=== PATIENT | female | born 1950 | race Caucasian/White ===

== ENCOUNTER → 2024-02-19 14:49 | Outpatient (REF) | payer MEDICARE, SELFPAY ==
[2024-02-19 16:24] LABS: % Basophils 0.5 % (0-2); % Eosinophils 0.3 % (0-6); % Immature Granulocytes 0.3 % (0-0.5); % Lymphocytes 17.7 % (20.5-51.1); % Monocytes 7.3 % (1.7-9.3); % Neutrophils 73.9 % (42.2-75.2); Absolute Lymphocytes 1.3 10^3/uL (1.2-3.4); Absolute Monocytes 0.6 10^3/uL (0.1-0.6); Absolute Neutrophils 5.6 10^3/uL (1.4-6.5); Hematocrit 40.1 % (37.0-47.0); Mean Corp Hgb Conc. 32.4 g/dL (33.0-37.0); Mean Corpuscular Hgb 29.7 pg (27.0-31.0); Mean Corpuscular Volume 91.6 fL (81.0-99.0); Mean Platelet Volume 11.6 fL (7.4-10.4); Nucleated Red Blood Cells % 0 %; Platelet Count 269 10^3/uL (130-400); Red Blood Cell Count 4.38 10^6/uL (4.20-5.40); Red Cell Dist. Width 13.1 % (11.5-14.5); White Blood Cell Count 7.5 10^3/uL (4.8-10.8)
== END ==
LOC: REG 14:49
PROVIDERS: ATTENDING PHYSICIAN Family Medicine
DX: D64.9 Anemia, unspecified (principal)
CPT/HCPCS: 36415; 85025

== ENCOUNTER → 2024-11-24 13:47 | Outpatient (REF) | payer MEDICARE, SELFPAY | LOC: RAD 13:47 | PROVIDERS: ATTENDING PHYSICIAN Family Medicine | DX: M54.50 Low back pain, unspecified (principal) | CPT/HCPCS: 72110 ==

== ENCOUNTER 2024-11-29 08:04 | Inpatient (IN) | payer MEDICARE, SELFPAY ==
[2024-11-27 12:34] VITALS: BP 117/69
[2024-11-27 13:33] VITALS: BMI 25.0
[2024-11-27 14:02] LABS: % Basophils 0.4 % (0-2); % Eosinophils 0.2 % (0-6); % Immature Granulocytes 0.4 % (0-0.5); % Lymphocytes 7.6 % (20.5-51.1); % Monocytes 8.2 % (1.7-9.3); % Neutrophils 83.2 % (42.2-75.2); Absolute Lymphocytes 0.8 10^3/uL (1.2-3.4); Absolute Monocytes 0.8 10^3/uL (0.1-0.6); Absolute Neutrophils 8.3 10^3/uL (1.4-6.5); Hematocrit 40.3 % (37.0-47.0); Hemoglobin 13.1 g/dL (12.0-16.0); Mean Corp Hgb Conc. 32.5 g/dL (33.0-37.0); Mean Corpuscular Hgb 29.8 pg (27.0-31.0); Mean Corpuscular Volume 91.8 fL (81.0-99.0); Mean Platelet Volume 10.9 fL (7.4-10.4); Nucleated Red Blood Cells % 0 %; Platelet Count 298 10^3/uL (130-400); Red Blood Cell Count 4.39 10^6/uL (4.20-5.40); Red Cell Dist. Width 12.5 % (11.5-14.5)
[2024-11-27 14:17] LABS: ALT (SGPT) 15 U/L (0-35); AST (SGOT) 17 U/L (14-36); Albumin 3.8 g/dl (3.5-5.0); Alkaline Phosphatase 153 U/L (38-126); Blood Urea Nitrogen 21 mg/dl (7-17); Calcium 9.2 mg/dl (8.4-10.2); Carbon Dioxide 27 mmol/L (22-30); Chloride 107 mmol/L (98-107); Estimated Creatinine Clearance 48 ml/min; Glucose 104 mg/dl (70-99); Lipase 93 U/L (23-300); Potassium 4.5 mmol/L (3.5-5.1); Sodium 139 mmol/L (135-145); Total Bilirubin 0.8 mg/dl (0.2-1.3); Total Protein 6.5 g/dl (6.3-8.2); eGFR > 60.00
[2024-11-27] MEDS: OFIRMEV 100 IV (14:46)
[2024-11-27] MEDS: TORADOL 15 MG IV (14:46)
[2024-11-27 14:54] VITALS: BP 149/82
--- NOTE | 2024-11-27 15:01 | ED.GENMED ---
History of Present Illness
General
Chief Complaint: Back Pain
Source: patient and family
Exam Limitations: none
Time Seen by Provider: 11/27/24 13:00
History of Present Illness
History of Present Illness:
Progressive back pain for weeks. No distal numbness tingling or weakness. Back pain is intractable. Had outpatient x-rays apparently done earlier this week. Family does not know the results.
Past History
Past History
ED Past Medical History: Hypercholesterolemia and Other (dementia)
ED Past Surgical History: Other (Bilateral cataract surgery)
Social History
Tobacco: Smoker
Alcohol: Daily
Drug: None
Personal: Single
Living: with family
Employment: Retired
Family History
Family History: Other
Review of Systems
Review of Systems
All Other Systems: Not applicable
Constitutional: Denies fever
ABD/GI: Reports abdominal pain (Bloating)
Phy Exam
Physical Exam
Physical Exam:
GENERAL: Alert and oriented in no apparent distress. Elderly and frail
EYE: Orbits normal.
NECK: Supple, no significant adenopathy.
ENT: Pharynx without erythema
CARDIAC: Regular rate and rhythm without any obvious murmurs.
LUNGS: Clear breath sounds,normal
ABDOMEN: Soft, mild distention but soft. No rebound or guarding no mass or hernia. Good bowel sounds.
NEUROLOGICAL: Alert and oriented x 2, grossly non-focal
SKIN: Warm and dry, no rash or lesion, no discoloration, skin intact.
MUSCULOSKELETAL: No edema,no deformity.Good color. Significant pain with attempted sitting up. Good lower extremity strength.
PSYCH: Normal and appropriate interaction.
Course
Orders/Labs/Results
Orders:
Orders
11/27/24 13:26
IV Insert/Care/Rem.- Treatment PRN
11/27/24 13:28
CT Abd/pel Without Iv Or Oral Urgent
Comment:
Reason For Exam: Vague abdominal bloating/low back pain
11/27/24 13:32
Complete Blood Count/With Diff Urgent
Comprehensive Metabolic Panel Urgent
Lipase Urgent
11/27/24 14:42
Acetaminophen 1000MG/100Ml [Ofirmev] 1,000 mg in 100 ml IV ONCE
Acetaminophen IV Indication:: ED Narcotic Naive Pt-ONCE
Ketorolac [Toradol] 15 mg IV NOW STA
11/27/24 15:18
Admit/Transfer Patient As Directed
Co-Sign Provider:
Level of Care: Observation services
Assign to:: Medical/Surgical
Physician / Group: sofy benavidez
Diagnosis: compression fracture
PRN Pain Medication Management As Directed
May give lesser potent ordered pain med per pt: Yes
preference::
Protocol:: Medication orders for pain may be administered in a
manner that supports deferring to patient preference
when the pt is:
- Requesting an ordered lesser potent pain medication.
Least to most potent pain medications are defined
as: acetaminophen < NSAID < tramadol < opioids
(morphine, oxycodone, hydromorphone).
- Requesting a lesser dose of the same medication IF
ORDERED.
- Requesting a less intrusive route of administration
if both routes are prescribed by the provider (PO <
IV).
11/27/24 15:19
Code Status As Directed
Resuscitation Status: Full Code
Abnormal Lab Results
11/27/24
13:32
MCHC 32.5 L g/dL
(33.0-37.0)
MPV 10.9 H fL
(7.4-10.4)
Absolute Neuts (auto) 8.3 H 10^3/uL
(1.4-6.5)
Absolute Lymphs (auto) 0.8 L 10^3/uL
(1.2-3.4)
Absolute Monos (auto) 0.8 H 10^3/uL
(0.1-0.6)
Neutrophils % 83.2 H %
(42.2-75.2)
Lymphocytes % 7.6 L %
(20.5-51.1)
BUN 21 H mg/dl
(7-17)
Glucose 104 H mg/dl
(70-99)
Alkaline Phosphatase 153 H U/L
(38-126)
11/27/24 13:32
11/27/24 13:32
Vital Signs
Initial and Last Documented VS:
Initial Vital Signs
Temp Pulse Resp BP Pulse Ox
97.4 F 84 20 117/69 98
11/27/24 12:34 11/27/24 12:34 11/27/24 12:34 11/27/24 12:34 11/27/24 12:34
Last Documented Vital Signs
Temp Pulse Resp BP Pulse Ox
98.1 F 71 16 149/82 94
11/27/24 14:54 11/27/24 14:54 11/27/24 14:54 11/27/24 14:54 11/27/24 14:54
*Radiology
Radiology exam reviewed: radiology read reviewed (Severe T12 compression fracture)
*Pulse Oximetry
Patient hypoxic: no
*Critical Care Note
Total Time (30-74mins, 75-104mins- exclusive of procedures): Not Applicable
Update Note
Update Note:
Patient had a compression fracture known this week. It is severe but stable since earlier in the week. However it is new from that time. I suspect that is the cause of her intractable pain. She has no neurologic symptoms despite the
retropulsion. Warrants inpatient management and pain control.
ED Attending Note
-
Portions of this chart may have been created with voice recognition software.� Occasional wrong word or��sound alike� substitutions may have occurred due to the inherent limitations of voice recognition software.
Discharge Plan
Departure
Patient Disposition: Admit
Date of Disposition: 11/27/24
Time of Disposition: 15:00
Presentation/result/management discussed w/ accepting MD/DO: Hospitalist
Discharge Problem:
Severe T12 compression fracture, Intractable pain
Interventions
Interventions:
*Risk Screen - Suicide Last Done: 11/27/24 13:33
*General Assessment Last Done: 11/27/24 13:33
ED-Musculoskeletal Assessment Last Done: 11/27/24 13:53
--- NOTE | 2024-11-27 15:01 | HPS.HSE ---
Family Physician
-
Family Physician: Wili Chaves
Chief Complaint
-
fall
History of Present Illness
74 year old of female with PMH for HLD, anxiety presented with lower back pain since the fall on Friday. she is having trouble walking due to the pain. the pain is progressively getting worse. denied incontinence of bowel and bladder. denied
HAMIL[place],dizzy or syncope.denied fever, chills, chest pain,sob. denied abdominal pain,n,v,d. denied dysuria or hematuria.
CT with Marked T12 vertebral compression fracture with minor retropulsion of bony elements age-indeterminate but new in the interval since remote prior CT and stable in comparison to recent lumbar spine radiographs November 24, 2024.
patient received Tylenol and Toradol in ER admitting for further management.
Medical History
Past Medical History
Past Medical History: Reports Other
Additional Past Medical History:
Generalized anxiety disorder
Insomnia
Dementia
Hyperlipidemia
Hydrocephalus
Neoplasm of cervix uterus
Past Surgical History: Reports None
Social History
Tobacco: Smoker (0.5 backl a day. )
Alcohol: Daily
Drug: None
Personal: Single
Living: With Family
Family History
Family History: Not pertinent
Allergies / Home Medications
Allergies reflects when Allergies were last updated in [facility].
Home Medications with original date entered in [facility]
Allergy/Medication List:
Allergies
Allergy/AdvReac Type Severity Reaction Status Date / Time
No Known Allergies Allergy Verified 11/27/24 12:33
Home Medications
olanzapine 15 mg tablet 15 mg PO HS 08/27/23
ibuprofen 200 mg tablet (Advil) 200 mg PO Q6HPRN PRN mild pain 11/27/24
rosuvastatin 10 mg tablet (Crestor) 10 mg PO QPM 11/27/24
Review of Systems
-
Constitutional: Reports No Symptoms
EENT: Reports No Symptoms
Respiratory: Reports No Symptoms
Cardiac: Reports No Symptoms
Abdomen/GI: Reports No Symptoms
: Reports No Symptoms
Musculoskeletal: Reports Other (back pain)
Skin: Reports No Symptoms
Neurological: Reports No Symptoms
Endocrine: Reports No Symptoms
Hematologic/Lymphatic: Reports No Symptoms
Psych: Reports No Symptoms
Physical Exam
Vital Signs
Vital Signs
Temp Pulse Resp BP Pulse Ox
98.1 F 71 16 149/82 94
11/27/24 14:54 11/27/24 14:54 11/27/24 14:54 11/27/24 14:54 11/27/24 14:54
Physical Exam
General: Well Developed, Well Nourished and No Apparent Distress
HEENT: NormoCephalic, Moist mucous membranes and Atraumatic
Respiratory: Clear
Cardiac: S1/S2 and Regular Rhythm; No Murmur or Rub
GI: Soft, Non Tender, Non Distended and Normal Bowel Sounds; No Organomegaly
Rectal: Deferred by Provider
Musculoskeletal: No Clubbing, No Cyanosis and No Edema
Skin: No Rash
Neuro: AO x 3 and Nonfocal/grossly intact
Psych: Calm
Laboratory Results
-
11/27/24 13:32
11/27/24 13:32
Laboratory Results
Total Bilirubin 0.8 mg/dl (0.2-1.3) 11/27/24 13:32
AST 17 U/L (14-36) 11/27/24 13:32
ALT 15 U/L (0-35) 11/27/24 13:32
Alkaline Phosphatase 153 U/L (38-126) H 11/27/24 13:32
Lipase 93 U/L (23-300) 11/27/24 13:32
Data Reviewed
-
CT Scan: Report Reviewed by me
Lab Data: Labs Reviewed by me
Impression/Plan
-
#intractable pain from T12 compression fracture
-Ct abdomen pelvis with No urinary tract calculus or dilatation bilaterally.Likely distal colonic diverticulosis.Marked T12 vertebral compression fracture with minor retropulsion of bony elements age-indeterminate but new in the interval since
remote prior CT and stable in comparison to recent lumbar spine radiographs November 24, 2024.
-PT/OT consulted
-Tylenol ATC
-oxy, Dilaudid
-physiatry consulted
#HLD
-statin
#Anxiety
-olanzapine continued
#DVT prophylaxis
Lovenox
#CODE status
-full code
--- NOTE | 2024-11-27 15:29 | W.PN.UPDATE ---
Update Note
Progress Note Update
I could not get any information from the patient seems to have cognitive impalement
Information gathered by chart review and speaking with the ER staff.
This note serves as an addendum to the H&P by coffee attendant VIRGILIO Gladys NOVAK
HPI
74F from Home with sister, report cognitive decline( Dementia ?) indepedent with ambulation HLD, Anxiety , chr Clonazepam use seen at ER:
- pw severe back pain s/p soft fall at home last Friday (11/24/24)
- no radiation.
- At baseline intact Bowel and bladder function but recent accident , urine incontinence
- Last BM was yesterday
PHX: see above
Vital Signs
Temp Pulse Resp BP Pulse Ox
98.1 F 71 16 149/82 94
11/27/24 14:54 11/27/24 14:54 11/27/24 14:54 11/27/24 14:54 11/27/24 14:54
PE
Gen: awake, alert
HEENT:atraumatic
Neck:supple
Lungs:CTA
Cor: RRR S1 S2
Abdomen: soft non tender abdomen
POLISHER AND BUFFER: slow cognitive speed, awake and alert , followed simple commands
MS: symmetric movement f both LExs
Psych: alert and confused
Laboratory Tests
11/27/24
13:32
WBC 10.0
Hgb 13.1
Plt Count 298
BUN 21 H
Creatinine 0.9
eGFR > 60.00
Alkaline Phosphatase [address]/pel Without Iv Or Oral
- No urinary tract calculus or dilatation bilaterally.
- Likely distal colonic diverticulosis.
- Marked T12 vertebral compression fracture with minor retropulsion of bony elements age-indeterminate but new in the interval since remote prior CT and stable in comparison to recent lumbar spine radiographs November 24, 2024.
ASSESSMENT & PLAN
Marked T12 vertebral compression Fx with minor retropulsion of bony elements age-indeterminate
New in the interval since remote prior CT and stable in comparison to recent lumbar spine XR November 24, 2024.
At baseline intact Bowel and bladder function but recent accident , urine incontinence
No red flags signs for acute cord and root compression
Of note: suspect cognitive decline( Dementia ?). Report indepedent with ambulation per sister
- Fx set protocol for PRN Analgesia, BW Regime
- PT & OT , CRM consult
- PM & R consult
- fall precaution
HLD
- c/w Statin
Suspect dementia
HX Anxiety
-c/w LYRIC WRITER Clonazepam
DVT Px: LMWH
Full code
Obs MS
[2024-11-27 17:21] VITALS: BP 151/73; BMI 24.4
[2024-11-27] MEDS: CRESTOR 10 MG PO (18:37)
[2024-11-27] MEDS: LOVENOX 40 MG SC (18:37)
[2024-11-27] MEDS: TYLENOL 650 MG PO ×2 (18:37→20:17)
[2024-11-27] MEDS: SENOKOT 17.2 MG PO (20:17)
[2024-11-27] MEDS: COLACE 100 MG PO (20:17)
[2024-11-27] MEDS: ZYPREXA 15 MG PO (21:11)
[2024-11-27 23:44] VITALS: BP 116/57
[2024-11-28] MEDS: TYLENOL PO ×2 (00:06→12:32)
[2024-11-28] MEDS: TYLENOL 650 MG PO ×5 (05:00→23:14)
[2024-11-28 07:30] VITALS: BP 132/63
[2024-11-28] MEDS: SENOKOT 17.2 MG PO ×2 (08:51→20:23)
[2024-11-28] MEDS: COLACE 100 MG PO ×2 (08:51→20:23)
--- NOTE | 2024-11-28 10:45 | W.PN.HOSP.TC ---
Addendum entered and electronically signed by Noel Carreon MD 11/28/24 12:29:
updated sister over the phone in details.
Addendum entered and electronically signed by Noel Carreon MD 11/28/24 10:55:
General: Well Developed, Well Nourished and No Apparent Distress, abnormal facial features
HEENT: NormoCephalic, Moist mucous membranes and Atraumatic
Respiratory: Clear
Cardiac: S1/S2 and Regular Rhythm; No Murmur or Rub
GI: Soft, positive bowel sound, mild distention
Rectal: Deferred by Provider
Musculoskeletal: No Clubbing, No Cyanosis and No Edema, no step-offs
Skin: No Rash
Neuro: Nonfocal/grossly intact
Psych: Calm
Original Note:
Today's Communication/Plan
-
Pain control
Bowel regimen
Rehab evaluation
Monitor mentation
Assessment / Plan
Assessment / Plan
#Intractable back pain from subacute vs. chronic T12 compression fracture
-Ct abdomen pelvis with No urinary tract calculus or dilatation bilaterally.Likely distal colonic diverticulosis.Marked T12 vertebral compression fracture with minor retropulsion of bony elements age-indeterminate but new in the interval since
remote prior CT and stable in comparison to recent lumbar spine radiographs November 24, 2024.
-PT/OT consulted
-no neurologic symptoms despite the retropulsion.
-Tylenol ATC
-bowel regimen
#HLD
-statin
#Paranoid scizophrenia ?
-olanzapine continued
#Suspected cognitive impairment
monitor mentation
fall precautions
# Tobacco abuse with suspected underlying COPD
# Alcohol usage
#DVT prophylaxis
Lovenox
#CODE status
-full code
Anticipated Discharge: 24 - 48 hours
Subjective/Interval History
-
Date of Service: November 28, 2024
denies any pain
Objective Data
-
Vital Signs:
Vital Signs
Temp Pulse Resp BP Pulse Ox
97.9 F 81 18 132/63 94
11/28/24 07:30 11/28/24 07:30 11/28/24 07:30 11/28/24 07:30 11/28/24 07:30
I&O
11/27/24 11/28/24 11/29/24
06:59 06:59 06:59
Intake Total 240 / 240
Balance 240 / 240
[2024-11-28] MEDS: MIRALAX 17 GRAMS PO ×2 (11:19→20:23)
[2024-11-28] MEDS: ROXICODONE 5 MG PO (11:19)
[2024-11-28 12:58] VITALS: BP 131/64; PULSE 77; O2SAT 92
--- NOTE | 2024-11-28 13:04 | CM ---
Adm dx - compression fracture
Pt with impaired cognitive function. Spoke with pts sister, Marti to complete IA
Per sister pt has hx of dementia, anxiety and schizophrenia. Over the past week has become increasing unsteady on her feet and a decreased appetite.
Pt lives in a multi-story home; 3 steps to enter, FF set up for pt - sleeps on sofa
Baseline pt ambulates without device, can dress and feed self with direction. Personal care - direction given to wash
DME - none
SNF - denies past hx
HH - [facility] in past
PCP - Wili Chaves
Pharm - [facility]
Discussed R[facility] with sister
PT/OT eval pending
Plan - TBD based on PT/OT evals, care team plan
[2024-11-28 13:28] VITALS: BP 131/64; PULSE 77; O2SAT 92
[2024-11-28] MEDS: MORPHINE SULFATE 1 MG IV (13:33)
[2024-11-28 15:05] VITALS: BP 118/49
[2024-11-28] MEDS: MORPHINE SULFATE 3 MG IV (16:17)
[2024-11-28] MEDS: LIDOCAINE 4% PATCH 1 PATCH TOPICAL (16:17)
[2024-11-28] MEDS: CRESTOR 10 MG PO (18:11)
[2024-11-28] MEDS: LOVENOX 40 MG SC (18:11)
[2024-11-28] MEDS: ROXICODONE 7.5 MG PO (18:21)
[2024-11-28] MEDS: ZYPREXA 15 MG PO (20:23)
[2024-11-28 23:05] VITALS: BP 105/49
[2024-11-29] MEDS: TYLENOL PO ×2 (06:06→16:41)
[2024-11-29 07:00] VITALS: BP 105/48
[2024-11-29] MEDS: LIDOCAINE 4% PATCH 1 PATCH TOPICAL (08:28)
[2024-11-29] MEDS: TYLENOL 650 MG PO ×3 (08:29→19:33)
[2024-11-29] MEDS: COLACE 100 MG PO ×2 (08:29→19:34)
[2024-11-29] MEDS: SENOKOT 17.2 MG PO ×2 (08:29→19:33)
[2024-11-29] MEDS: MIRALAX 17 GRAMS PO ×2 (08:29→19:34)
[2024-11-29] MEDS: ROXICODONE 7.5 MG PO (08:35)
[2024-11-29 09:10] VITALS: BP 111/71; BP 154/79; PULSE 80; O2SAT 92
[2024-11-29 09:54] LABS: Vitamin D, 25-OH*** 13.7 ng/mL (30-80)
--- NOTE | 2024-11-29 10:36 | W.PN.HOSP.TC ---
Addendum entered and electronically signed by Noel Carreon MD 11/29/24 13:23:
updated sister Marti over the phone in details.
Original Note:
Today's Communication/Plan
-
pain control
CM for dispo
Assessment / Plan
Assessment / Plan
General: Well Developed, Well Nourished and No Apparent Distress, abnormal facial features
HEENT: NormoCephalic, Moist mucous membranes and Atraumatic
Respiratory: Clear
Cardiac: S1/S2 and Regular Rhythm; No Murmur or Rub
GI: Soft, positive bowel sound, mild distention
Rectal: Deferred by Provider
Musculoskeletal: No Clubbing, No Cyanosis and No Edema, no step-offs
Skin: No Rash
Neuro: Nonfocal/grossly intact
Psych: Calm
#Intractable back pain from subacute vs. chronic T12 compression fracture
-Ct abdomen pelvis with No urinary tract calculus or dilatation bilaterally.Likely distal colonic diverticulosis.Marked T12 vertebral compression fracture with minor retropulsion of bony elements age-indeterminate but new in the interval since
remote prior CT and stable in comparison to recent lumbar spine radiographs November 24, 2024.
-PT/OT consulted
-no neurologic symptoms despite the retropulsion.
-oxycodone increased. tramadol. Iv morphine for severe breakthrough pain
-Tylenol ATC
-bowel regimen
#HLD
-statin
#Paranoid scizophrenia ?
-olanzapine continued
#Suspected cognitive impairment
monitor mentation
fall precautions
# Tobacco abuse with suspected underlying COPD
# Alcohol usage
#DVT prophylaxis
Lovenox
#CODE status
-full code
PT/OT-home vn
Anticipated Discharge: Within 24 hours
Subjective/Interval History
-
Date of Service: November 29, 2024
sitting in chair
states of back pain
Objective Data
-
Vital Signs:
Vital Signs
Temp Pulse Resp BP Pulse Ox
98.2 F 78 22 105/48 90
11/29/24 07:00 11/29/24 07:00 11/29/24 07:00 11/29/24 07:00 11/29/24 07:00
I&O
11/28/24 11/29/24 11/30/24
06:59 06:59 06:59
Intake Total 240 / 240 1080 / 1080
Output Total 200 / 200
Balance 240 / 240 880 / 880
--- NOTE | 2024-11-29 11:11 | CM ---
Chart reviewed
Pts status changed to inpatient
PT/OT - recs - HH
Spoke with pts sister Marti - discussed PT/OT recs - agreeable to HH for sister. Requested [facility]
Discussed change in status - reviewed IMM verbally with sister
Reports can transport pt home at d/c
Discussed resources available through [facility] on agency - reports pts PCP had previously given her information and phone number
Reports at this time home life is ok - she will call regarding additional supports if needs change
Marti requesting update from Physician - TT sent to Dr Carreon
[facility] - RN/PT/PT/SW
Plan - anticipate home with [facility] when medically stable
--- NOTE | 2024-11-29 11:28 | VNURNOTE ---
Home Health Liaison spoke with patient 's primary contact/caregiver sister Marti to discuss [facility] nurse/therapy, visits, schedule and homebound status. Patient is agreeable and understands that visits at home will be 2-3 x per week to assess and
teach medical management. She is familiar with [facility] services. Sister is aware that [facility] will contact them for start of care in 1-2 days after discharge from .
[facility] referral completed in [facility].
[2024-11-29] MEDS: DRISDOL (VITAMIN D2) 50000 UNITS PO (11:49)
[2024-11-29] MEDS: MORPHINE SULFATE 3 MG IV ×2 (12:42→16:42)
[2024-11-29] MEDS: ULTRAM 50 MG PO (14:47)
[2024-11-29 15:07] VITALS: BP 124/92
[2024-11-29] MEDS: CRESTOR 10 MG PO (17:03)
[2024-11-29] MEDS: LOVENOX 40 MG SC (17:03)
--- NOTE | 2024-11-29 17:30 | CON.MD ---
Documented by User: Holli Shelton PA-C 11/30/24 08:44
Consultation - Medical
-
Referring Provider:�oNel Delgadillo
Chief Complaint:�Back pain, T12 compression fracture
�
History of Present Illness:�74 year old female with PMH for (HLD, anxiety,insomnia, dementia, hyperlipidemia, history of hydrocephalus, neoplasm of cervix uterus, left shoulder fracture s/p reversed replacement, Paranoid schizophrenia.) presented
with intractable back pain since the fall on 11/24/24. she is having trouble walking due to the pain. the pain is progressively getting worse. denied incontinence of bowel and bladder. CT scan revealed marked T12 vertebral compression
fracture with minor retropulsion of bony elements age indeterminate but new in the interval since remote prior CT and stable in comparison to recent lumbar spine radiology or 2024
Patient received Tylenol and Toradol in ER admitting for further management. Per therapy notes, patient's sister reported that patient was sleeping upstairs in the bedroom up until last year when she fractured her left shoulder. She since has been
sleeping on a couch in the living room. Supervision without device/furniture walks around the house.
Patient still complaining of 10/10 back pain lying in bed. Voices no bowel movements in few days. Unclear of timing of last bowel movement.
�
Past Medical History:� HLD, anxiety, insomnia, dementia, paranoid schizophrenia ,hyperlipidemia, hydrocephalus, neoplasm of cervix uterus, left shoulder fracture, R breast DCIS, 2018, s/p lumpectomy.
Procedure History:�left total reversed shoulder replacement, Bilateral cataract extraction, right breast lumpectomy, Hysterectomy.
Family History:� non contributory.
�
Social History:�
Functional Level Premorbidly:�Previous ADL�supervision,
Functional Level Currently:�Eating�set up, grooming, toileting�min assist, lower extremity care�mod assist, bed mobility�supervision, ambulates 30 feet x 1, void on toilet, stand at sink with OT for ADL, 20 feet x 1 without a device and hand-held
assist/min assist for balance, increased pain with mobility, decreased lower extremity clearance and step length unsteady
Tobacco:0.5 pack/day since 18
Alcohol:�Daily, 2 glasses of wine
Drug use:�Denies�
�
Lives with:�2 other sisters (Megan and Shanique)
24-hour assistance available:�
Number of floors:�3
# steps to enter:�2
# steps to second floor:FF
Potential First floor set up:�yes
Driving:�no
Occupation:�Retired
�
�
Allergies:�
Allergy/AdvReac Type Severity Reaction Status Date / Time
No Known Allergies Allergy Verified 11/27/24 12:33
�
Review of Systems:�
Constitutional: (x) Normal _
Eye: (x) Normal _
Ear/Nose/Throat: (x) Normal _
Respiratory: (x) Normal _
Cardiovascular: (x) Normal _
Gastrointestinal: (x) Normal _
Genitourinary: (x) abNormal Stress incontinence._
Musculoskeletal: (x) abNormal _back pain from T12 compression fracture, h/o left total reversed shoulder replacement
Integumentary: (x) Normal _
Neurologic: (x) Normal _hydrocephalus
Psychiatric: (x) abNormal _anxiety, paranoid
Endocrine: (x) Normal _
Hematologic/Lymphatic: (x) Normal _
Allergic/Immunologic: (x) Normal _
�
Medications:�
Active Current Visit Medication List
Category Date Time Status
Acetaminophen [Tylenol] Med 11/27/24 17:02 Active
650 mg PO Q4HWA
Docusate Sodium [Colace] Med 11/27/24 20:00 Active
100 mg PO BID
Enoxaparin Sodium [Lovenox] Med 11/27/24 18:00 Active
40 mg SC QPM
Ergocalciferol [Drisdol (Vitamin D2)] Med 11/29/24 11:00 Active
50,000 units PO Q7D
Flush (0.9% Sodium Chloride) [Flush (Nss)] Med 11/27/24 18:00 Active
See Dose Instructions IV PER PROTOCOL
Lidocaine [Lidocaine 4% Patch] Med 11/28/24 14:45 Active
1 patch TOPICAL DAILY
Magnesium Hydroxide [Milk of Magnesia] Med 11/27/24 17:02 Active
30 ml PO DAILYPRN PRN
Morphine Sulfate Med 11/28/24 14:34 Active
3 mg IV Q4HPRN PRN
Olanzapine [Zyprexa] Med 11/27/24 22:00 Active
15 mg PO HS
Oxycodone [Roxicodone] Med 11/29/24 10:36 Active
10 mg PO Q4HPRN PRN
Polyethylene Glycol Powder [Miralax] Med 11/28/24 11:00 Active
17 grams PO BID
Rosuvastatin Calcium [Crestor] Med 11/27/24 18:00 Active
10 mg PO QPM
Sennosides [Senokot] Med 11/27/24 20:00 Active
17.2 mg PO BID
Tramadol HCl [Ultram] Med 11/29/24 10:35 Active
50 mg PO Q6HPRN PRN
�
Vitals:�
Temp Pulse Resp BP Pulse Ox
97.8 F 89 21 124/92 91
11/29/24 15:07 11/29/24 15:07 11/29/24 15:07 11/29/24 15:07 11/29/24 15:07
Height 5 ft 5 in
Actual Weight 66.497 kg
Body Mass Index (BMI) 24.4
�
Physical Exam:�
General Appearance/Observation: Well-developed, well-nourished individual in no apparent distress.�
Pain/Comfort Assessment: back 10/10 lying in bed
Mood/Affect: flat,
�
Integumentary/Operative Site:�
�� Pressure Ulcer Evaluation: absent over heels.�
��
�� Other Type of Wound: absent�
��
�
Eyes: Conjunctiva/Lids: left ptosis, teary eyes���� Pupils: pupils equal round
Ears/Nose/Throat: oral mucosa moist,� throat clear.������������ Lips/Teeth/Gums: normal�
Neck: No muscle spasm or tenderness�
Cardiovascular: Heart: regular, no murmur�
Pulses: dorsalis pedis -NT
Respiratory: Respiratory Effort/Chest Expansion: normal������� Auscultation: Clear to auscultation bilaterally�
Gastrointestinal: abdomen not tender, no distension, normal abdominal bowel sounds
Genitourinary: No Waller�
Extremities:�Edema: None�Cyanosis: None�Trophic�changes: None
�
Neurology Exam:
Orientation: Alert, Oriented to self, Time, Place�
Memory: seems Intact for immediately medical concerns
Comprehension: slow processing somewhat impaired
Two step command: slow to respond
Naming: somewhat impaired, showed the TV and asked to ID it, said 'a box', showed bed, said ' I lay on it', knows year, month and date
Cranial Nerves:
�� CNII:�Pupillary light reflex: Intact����Visual Field: Intact
�� CN III, IV, : Extraocular muscles: Intact�
�� CN V:�Facial Sensation�at�Forehead: Intact,�Maxilla: Intact,�Mandible: Intact
�� CN VII:�Facial movement: Symmetric
�� CN VIII:�Hearing: Normal
�� CN IX/X:�Speech & swallow: low volume, somewhat muffled�Position of Uvula: Midline
�� CN XI:�Shoulder shrug: Symmetric
�� CN XII:�Tongue protrusion: Midline
Sensory:
�� Light touch: Intact in bilateral upper and lower extremities
��
�
Reflexes:
�� Biceps: 2+ bilaterally
�� Brachioradialis: 2+ bilaterally
�� Triceps: 2+ bilaterally
�� Patellar: 2+ bilaterally
�� Achilles: absent bilaterally
�� Babinski: Down going bilaterally
�� Clonus: NT
�� Cory: Negative bilaterally�
Cerebellar: Dysmetria/Ataxia: NT
Musculoskeletal:
Motor: (Manual muscle scale 0-5)�
Muscle SA EF WE EE FF FA HF KE DF EHL PF
Right� 5 5 4 4 4 5 4 4
Left 5 5 4 4 4 5 4
�strength test better with encouragement
Tone: Normal in all extremities�
Range of Motion: Passively within normal limits in all extremities�, diminished in shoulders
�
Lab Results:
Labs
WBC 10.0 10^3/uL (4.8-10.8) 11/27/24 13:32
RBC 4.39 10^6/uL (4.20-5.40) 11/27/24 13:32
Hgb 13.1 g/dL (12.0-16.0) 11/27/24 13:32
Hct 40.3 % (37.0-47.0) 11/27/24 13:32
MCV 91.8 fL (81.0-99.0) 11/27/24 13:32
MCH 29.8 pg (27.0-31.0) 11/27/24 13:32
MCHC 32.5 g/dL (33.0-37.0) L 11/27/24 13:32
RDW 12.5 % (11.5-14.5) 11/27/24 13:32
Plt Count 298 10^3/uL (130-400) 11/27/24 13:32
MPV 10.9 fL (7.4-10.4) H 11/27/24 13:32
Abs Immat Gran (auto) 0.0 10^3/uL (0-0.05) 11/27/24 13:32
Absolute Neuts (auto) 8.3 10^3/uL (1.4-6.5) H 11/27/24 13:32
Absolute Lymphs (auto) 0.8 10^3/uL (1.2-3.4) L 11/27/24 13:32
Absolute Monos (auto) 0.8 10^3/uL (0.1-0.6) H 11/27/24 13:32
Absolute Eos (auto) 0.0 10^3/uL (0-0.7) 11/27/24 13:32
Absolute Basos (auto) 0.0 10^3/uL (0-0.2) 11/27/24 13:32
Immature Gran % 0.4 % (0-0.5) 11/27/24 13:32
Neutrophils % 83.2 % (42.2-75.2) H 11/27/24 13:32
Lymphocytes % 7.6 % (20.5-51.1) L 11/27/24 13:32
Monocytes % 8.2 % (1.7-9.3) 11/27/24 13:32
Eosinophils % 0.2 % (0-6) 11/27/24 13:32
Basophils % 0.4 % (0-2) 11/27/24 13:32
Nucleated RBC % 0 % 11/27/24 13:32
Sodium 139 mmol/L (135-145) 11/27/24 13:32
Potassium 4.5 mmol/L (3.5-5.1) 11/27/24 13:32
Chloride 107 mmol/L (98-107) 11/27/24 13:32
Carbon Dioxide 27 mmol/L (22-30) 11/27/24 13:32
BUN 21 mg/dl (7-17) H 11/27/24 13:32
Creatinine 0.9 mg/dL (0.6-1.0) 11/27/24 13:32
Estimated Creat Clear 48 ml/min 11/27/24 13:32
eGFR > 60.00 11/27/24 13:32
Glucose 104 mg/dl (70-99) H 11/27/24 13:32
Calcium 9.2 mg/dl (8.4-10.2) 11/27/24 13:32
Total Bilirubin 0.8 mg/dl (0.2-1.3) 11/27/24 13:32
AST 17 U/L (14-36) 11/27/24 13:32
ALT 15 U/L (0-35) 11/27/24 13:32
Alkaline Phosphatase 153 U/L (38-126) H 11/27/24 13:32
Total Protein 6.5 g/dl (6.3-8.2) 11/27/24 13:32
Albumin 3.8 g/dl (3.5-5.0) 11/27/24 13:32
Lipase 93 U/L (23-300) 11/27/24 13:32
Vitamin D 25-Hydroxy 13.7 ng/mL (30-80) L 11/29/24 08:44
�
Diagnostic Results:�as per HPI�
�
-Ct abdomen pelvis with No urinary tract calculus or dilatation bilaterally.Likely distal colonic diverticulosis.Marked T12 vertebral compression fracture with minor retropulsion of bony elements age-indeterminate but new in the interval since
remote prior CT and stable in comparison to recent lumbar spine radiographs November 24, 2024.
Assessment: 74-year-old female with ADL and ambulatory dysfunctions from intractable back pain due T12 compression fracture
�
Plan�
PT/OT to increase independence with ADLs, improve balance, coordination, endurance, strength, mobility, community reintegration, decreased burden of care on others and family education.�
�
intractable pain from T12 compression fracture/ambulatory dysfunction: Oxycodone, Dilaudid, Tylenol as needed, Tramadol, Morphine IV 3mg q 4 hours prn
HLD: Rosuvastatin 10 mg
Anemia: Likely multifactorial.� Continue to monitor.�
Psych/Anxiety/paranoia schizophrenia: Psychology consult.� Monitor mood, Zyprexa 15 mg at bedtime
Skin: monitor for pressure sores/rashes/lesions.�
Pain: acetaminophen or oxycodone as needed, morphine 3 mg IV every 4 as needed, tramadol 50 mg p.o. every 6 as needed,
Bowel: Colace and Senna, PRN bisacodyl.�
Bladder: Time void, PVRs, PRN straight cath.�
GI Prophylaxis: Pantoprazole�
DVT Prophylaxis: Mechanical, Lovenox 40
Vitamin D deficiency: 13.7-vitamin D2, 50,000 units q. 7 days. recommending OP dexa scan with PCP
Pulmonary: Incentive spirometry�
Safety: Continue to reinforce assistance with all transfers.�
Code Status:� Full code
Dispo�(date/plan/equipment needs): Home with family care.� Social history reviewed.�
�
�Summary of recommendations: Patient with ambulatory dysfunction secondary to T12 compression fracture would benefit from PT/OT to improve balance, coordination, endurance, strength, mobility, community reintegration,
-�
Discharge Destination:�Acute inpatient rehabilitation
�
intractable pain from T12 compression fracture/ambulatory dysfunction: Oxycodone, Dilaudid, Tylenol as needed, Tramadol, Morphine IV 3mg q 4 hours prn. Pain has to be under control with PO medications for 24 hours prior to discharge.
Bowel: Colace and Senna, PRN bisacodyl- Unclear of last bowel movement. Prevent constipation especially with multiple opioids on board
Bladder: Time void, PVRs, PRN straight cath.�
GI Prophylaxis: Pantoprazole�
DVT Prophylaxis: Mechanical, Lovenox 40
Thank you for allowing me to care for your patient. Please contact me with any questions or concerns.

Documented by User: Addy Ku MD 11/30/24 09:15
Consultation - Medical
-
Referring Provider:�Noel Delgadillo
Chief Complaint:�Back pain, T12 compression fracture
�
History of Present Illness:�74 year old female with PMH for (HLD, anxiety,insomnia, dementia, hyperlipidemia, history of hydrocephalus, neoplasm of cervix uterus, left shoulder fracture s/p reversed replacement, Paranoid schizophrenia.) presented
with intractable back pain since the fall on 11/24/24. she is having trouble walking due to the pain. the pain is progressively getting worse. denied incontinence of bowel and bladder. CT scan revealed marked T12 vertebral compression
fracture with minor retropulsion of bony elements age indeterminate but new in the interval since remote prior CT and stable in comparison to recent lumbar spine radiology or 2024
Patient received Tylenol and Toradol in ER admitting for further management. Per therapy notes, patient's sister reported that patient was sleeping upstairs in the bedroom up until last year when she fractured her left shoulder. She since has been
sleeping on a couch in the living room. Supervision without device/furniture walks around the house.
Patient still complaining of 10/10 back pain lying in bed. Voices no bowel movements in few days. Unclear of timing of last bowel movement.
�
Past Medical History:� HLD, anxiety, insomnia, dementia, paranoid schizophrenia ,hyperlipidemia, hydrocephalus, neoplasm of cervix uterus, left shoulder fracture, R breast DCIS, 2018, s/p lumpectomy.
Procedure History:�left total reversed shoulder replacement, Bilateral cataract extraction, right breast lumpectomy, Hysterectomy.
Family History:� non contributory.
�
Social History:�
Functional Level Premorbidly:�Previous ADL�supervision,
Functional Level Currently:�Eating�set up, grooming, toileting�min assist, lower extremity care�mod assist, bed mobility�supervision, ambulates 30 feet x 1, void on toilet, stand at sink with OT for ADL, 20 feet x 1 without a device and hand-held
assist/min assist for balance, increased pain with mobility, decreased lower extremity clearance and step length unsteady
Tobacco:0.5 pack/day since 18
Alcohol:�Daily, 2 glasses of wine
Drug use:�Denies�
�
Lives with:�2 other sisters (Megan and Shanique)
24-hour assistance available:�Yes but sisters have own medical issues
Number of floors:�3
# steps to enter:�2
# steps to second floor:FF
Potential First floor set up:�yes
Driving:�no
Occupation:�Retired
�
�
Allergies:�
Allergy/AdvReac Type Severity Reaction Status Date / Time
No Known Allergies Allergy Verified 11/27/24 12:33
�
Review of Systems:�
Constitutional: (x) Normal _
Eye: (x) Normal _
Ear/Nose/Throat: (x) Normal _
Respiratory: (x) Normal _
Cardiovascular: (x) Normal _
Gastrointestinal: (x) Normal _
Genitourinary: (x) abNormal Stress incontinence._
Musculoskeletal: (x) abNormal _back pain from T12 compression fracture, h/o left total reversed shoulder replacement
Integumentary: (x) Normal _
Neurologic: (x) Normal _hydrocephalus
Psychiatric: (x) abNormal _anxiety, paranoid
Endocrine: (x) Normal _
Hematologic/Lymphatic: (x) Normal _
Allergic/Immunologic: (x) Normal _
�
Medications:�
Active Current Visit Medication List
Category Date Time Status
Acetaminophen [Tylenol] Med 11/27/24 17:02 Active
650 mg PO Q4HWA
Docusate Sodium [Colace] Med 11/27/24 20:00 Active
100 mg PO BID
Enoxaparin Sodium [Lovenox] Med 11/27/24 18:00 Active
40 mg SC QPM
Ergocalciferol [Drisdol (Vitamin D2)] Med 11/29/24 11:00 Active
50,000 units PO Q7D
Flush (0.9% Sodium Chloride) [Flush (Nss)] Med 11/27/24 18:00 Active
See Dose Instructions IV PER PROTOCOL
Lidocaine [Lidocaine 4% Patch] Med 11/28/24 14:45 Active
1 patch TOPICAL DAILY
Magnesium Hydroxide [Milk of Magnesia] Med 11/27/24 17:02 Active
30 ml PO DAILYPRN PRN
Morphine Sulfate Med 11/28/24 14:34 Active
3 mg IV Q4HPRN PRN
Olanzapine [Zyprexa] Med 11/27/24 22:00 Active
15 mg PO HS
Oxycodone [Roxicodone] Med 11/29/24 10:36 Active
10 mg PO Q4HPRN PRN
Polyethylene Glycol Powder [Miralax] Med 11/28/24 11:00 Active
17 grams PO BID
Rosuvastatin Calcium [Crestor] Med 11/27/24 18:00 Active
10 mg PO QPM
Sennosides [Senokot] Med 11/27/24 20:00 Active
17.2 mg PO BID
Tramadol HCl [Ultram] Med 11/29/24 10:35 Active
50 mg PO Q6HPRN PRN
�
Vitals:�
Temp Pulse Resp BP Pulse Ox
97.8 F 89 21 124/92 91
11/29/24 15:07 11/29/24 15:07 11/29/24 15:07 11/29/24 15:07 11/29/24 15:07
Height 5 ft 5 in
Actual Weight 66.497 kg
Body Mass Index (BMI) 24.4
�
Physical Exam:�
General Appearance/Observation: Well-developed, well-nourished individual in no apparent distress.�
Pain/Comfort Assessment: back 10/10 lying in bed
Mood/Affect: flat, a little guarded initially, better as exam progressed
�
Integumentary/Operative Site:�
�� Pressure Ulcer Evaluation: absent over heels.���
�
Eyes: Conjunctiva/Lids: left ptosis, teary eyes���� Pupils: pupils equal round
Ears/Nose/Throat: oral mucosa moist,� throat clear.������������ Lips/Teeth/Gums: normal�
Neck: No muscle spasm or tenderness�
Cardiovascular: Heart: regular, no murmur�
Pulses: dorsalis pedis -NT
Respiratory: Respiratory Effort/Chest Expansion: normal������� Auscultation: Clear to auscultation bilaterally�
Gastrointestinal: abdomen not tender, no distension, normal abdominal bowel sounds
Genitourinary: No Waller�
Extremities:�Edema: None�Cyanosis: None�Trophic�changes: None
Neurology Exam:
Orientation: Alert, Oriented to self, Time, Place�
Memory: Impaired
Comprehension: slow processing somewhat impaired
Two step command: slow to respond
Naming: somewhat impaired, showed the TV and asked to ID it, said 'a box', showed bed, said ' I lay on it', knows year, month and date
Cranial Nerves:
�� CNII:�Pupillary light reflex: Intact����Visual Field: Intact
�� CN III, IV, : Extraocular muscles: Intact�
�� CN V:�Facial Sensation�at�Forehead: Intact,�Maxilla: Intact,�Mandible: Intact
�� CN VII:�Facial movement: Symmetric
�� CN VIII:�Hearing: Normal
�� CN IX/X:�Speech & swallow: low volume, somewhat muffled�Position of Uvula: Midline
�� CN XI:�Shoulder shrug: Symmetric
�� CN XII:�Tongue protrusion: Midline
Sensory:
�� Light touch: Intact in bilateral upper and lower extremities
��
�
Reflexes:
�� Biceps: 2+ bilaterally
�� Brachioradialis: 2+ bilaterally
�� Triceps: 2+ bilaterally
�� Patellar: 2+ bilaterally
�� Achilles: absent bilaterally
�� Babinski: Down going bilaterally
�� Clonus: NT
�� Cory: Negative bilaterally�
Cerebellar: Dysmetria/Ataxia: NT
Musculoskeletal: Motor: (Manual muscle scale 0-5)�
Muscle SA EF WE EE FF FA HF KE DF EHL PF
Right� 5 5 4 3+ 4 5 4 4
Left 5 5 4 3+ 4 5 4 4
�strength test better with encouragement, hips limited by pain anticipation.
Tone: Normal in all extremities�
Range of Motion: Passively within normal limits in all extremities�, diminished in shoulders
�
Lab Results:
Labs
WBC 10.0 10^3/uL (4.8-10.8) 11/27/24 13:32
RBC 4.39 10^6/uL (4.20-5.40) 11/27/24 13:
Hgb 13.1 g/dL (12.0-16.0) 11/27/24 13:
Hct 40.3 % (37.0-47.0) 11/27/24 13:
MCV 91.8 fL (81.0-99.0) 11/27/24 13:
MCH 29.8 pg (27.0-31.0) 11/27/24:
MCHC 32.5 g/dL (33.0-37.0) L 11/27/24:
RDW 12.5 % (11.5-14.5) 11/27/24 13:
Plt Count 298 10^3/uL (130-400) 11/27/24 13:32
MPV 10.9 fL (7.4-10.4) H 11/27/24 13:32
Abs Immat Gran (auto) 0.0 10^3/uL (0-0.05) 11/27/24 13:32
Absolute Neuts (auto) 8.3 10^3/uL (1.4-6.5) H 11/27/24 13:
Absolute Lymphs (auto) 0.8 10^3/uL (1.2-3.4) L 11/27/24 13:32
Absolute Monos (auto) 0.8 10^3/uL (0.1-0.6) H 11/27/24 13:
Absolute Eos (auto) 0.0 10^3/uL (0-0.7) 11/27/24 13:
Absolute Basos (auto) 0.0 10^3/uL (0-0.2) 11/27/24 13:
Immature Gran % 0.4 % (0-0.5) 11/27/24 13:32
Neutrophils % 83.2 % (42.2-75.2) H 11/27/24 13:32
Lymphocytes % 7.6 % (20.5-51.1) L 11/27/24 13:32
Monocytes % 8.2 % (1.7-9.3) 11/27/24 13:32
Eosinophils % 0.2 % (0-6) 11/27/24 13:32
Basophils % 0.4 % (0-2) 11/27/24 13:32
Nucleated RBC % 0 % 11/27/24 13:32
Sodium 139 mmol/L (135-145) 11/27/24 13:32
Potassium 4.5 mmol/L (3.5-5.1) 11/27/24 13:32
Chloride 107 mmol/L (98-107) 11/27/24 13:32
Carbon Dioxide 27 mmol/L (22-30) 11/27/24 13:32
BUN 21 mg/dl (7-17) H 11/27/24 13:32
Creatinine 0.9 mg/dL (0.6-1.0) 11/27/24 13:32
Estimated Creat Clear 48 ml/min 11/27/24 13:32
eGFR > 60.00 11/27/24 13:32
Glucose 104 mg/dl (70-99) H 11/27/24 13:32
Calcium 9.2 mg/dl (8.4-10.2) 11/27/24 13:32
Total Bilirubin 0.8 mg/dl (0.2-1.3) 11/27/24 13:32
AST 17 U/L (14-36) 11/27/24 13:32
ALT 15 U/L (0-35) 11/27/24 13:32
Alkaline Phosphatase 153 U/L (38-126) H 11/27/24 13:32
Total Protein 6.5 g/dl (6.3-8.2) 11/27/24 13:32
Albumin 3.8 g/dl (3.5-5.0) 11/27/24 13:32
Lipase 93 U/L (23-300) 11/27/24 13:32
Vitamin D 25-Hydroxy 13.7 ng/mL (30-80) L 11/29/24 08:44
�
Diagnostic Results:�as per HPI�
CT abdomen pelvis with No urinary tract calculus or dilatation bilaterally.Likely distal colonic diverticulosis.Marked T12 vertebral compression fracture with minor retropulsion of bony elements age-indeterminate but new in the interval since remote
prior CT and stable in comparison to recent lumbar spine radiographs November 24, 2024.
Assessment:
74-year-old female with ADL and ambulatory dysfunctions from intractable back pain due T12 compression fracture
�
Plan�
PT/OT to increase independence with ADLs, improve balance, coordination, endurance, strength, mobility, community reintegration, decreased burden of care on others and family education.�
�
intractable pain from T12 compression fracture/ambulatory dysfunction:
- Oxycodone 7.5 4 10 mg every 4 hours
- lidocaine patch
- Tylenol 650 mg every 4 hours while awake could be changed to 1000 mg scheduled every 8 hours
- Tramadol as needed could be scheduled 50 mg 4 times a day with 50 mg every 6 hours as needed and can be increased potentially up to 100 mg every 6 hours
- Morphine IV 3mg q 4 hours prn will need to be stable off of IV morphine before transition to rehab.
HLD: Rosuvastatin 10 mg
Anemia: Likely multifactorial.� Continue to monitor.�
Psych/Anxiety/paranoia schizophrenia: Psychology consult.� Monitor mood, Zyprexa 15 mg at bedtime
Skin: monitor for pressure sores/rashes/lesions.�
Pain: As above
Bowel: Colace and Senna, PRN bisacodyl.�
Bladder: Time void, PVRs, PRN straight cath.�
GI Prophylaxis: Pantoprazole�
DVT Prophylaxis: Mechanical, Lovenox 40
Vitamin D deficiency: Level 13.7-vitamin D2, 50,000 units q. 7 days. recommending OP dexa scan with PCP
Pulmonary: Incentive spirometry�
Safety: Continue to reinforce assistance with all transfers.�
Code Status:� Full code
Dispo�(date/plan/equipment needs): Home with family care.� Social history reviewed.�
Discharge Destination:�Acute inpatient rehabilitation if pain better tolerated, otherwise SNF�
Attending Statement: Late entry
I saw and examined the patient 11/29/2024. Reviewed care plan with patient, therapy, nursing, and physician floral assistant. I agree with the above subjective and physical exam, and plan as documented by MARQUITA Shelton with adjustments made as necessary. A
total of 60 minutes were spent with the patient preparing for the evaluation, obtaining history, performing examination and evaluation, counseling, data review, case management, care coordination, order processor, and EMR documentation.
�Summary of recommendations: Patient with ambulatory dysfunction secondary to T12 compression fracture would benefit from PT/OT to improve balance, coordination, endurance, strength, mobility, community reintegration,
Discharge Destination:�Discharge Destination:�Acute inpatient rehabilitation if pain better tolerated, otherwise SNF�
intractable pain from T12 compression fracture/ambulatory dysfunction:
- Oxycodone 7.5 4 10 mg every 4 hours
- lidocaine patch
- Tylenol 650 mg every 4 hours while awake could be changed to 1000 mg scheduled every 8 hours
- Tramadol as needed could be scheduled 50 mg 4 times a day with 50 mg every 6 hours as needed and can be increased potentially up to 100 mg every 6 hours
- Morphine IV 3mg q 4 hours prn will need to be stable off of IV morphine before transition to rehab.
Pain has to be under control with PO medications for 24 hours prior to discharge.
Bowel: Colace and Senna, PRN bisacodyl- Unclear of last bowel movement. Prevent constipation especially with multiple opioids on board
Bladder: Time void, PVRs, PRN straight cath.�
GI Prophylaxis: Pantoprazole�
DVT Prophylaxis: Mechanical, Lovenox 40
Thank you for allowing me to care for your patient. Please contact me with any questions or concerns.
[2024-11-29] MEDS: ROXICODONE 10 MG PO (19:34)
[2024-11-29] MEDS: ZYPREXA 15 MG PO (22:31)
[2024-11-29 23:26] VITALS: BP 111/69
[2024-11-30] MEDS: TYLENOL PO ×2 (01:00→14:55)
[2024-11-30] MEDS: TYLENOL 650 MG PO ×2 (04:56→09:35)
[2024-11-30 07:32] VITALS: BP 110/70
[2024-11-30] MEDS: LIDOCAINE 4% PATCH 1 PATCH TOPICAL (09:35)
[2024-11-30] MEDS: COLACE 100 MG PO ×2 (09:35→20:51)
[2024-11-30] MEDS: SENOKOT 17.2 MG PO ×2 (09:35→20:51)
[2024-11-30] MEDS: MIRALAX 17 GRAMS PO ×2 (09:35→20:52)
--- NOTE | 2024-11-30 10:08 | PN.CDI ---
CDI
- -
CDI:
Physician Documentation Request
Admit Date: 11/29/24 08:04
Dear Doctor Lauri,
Please review the following and provide your response in the progress notes.
Clinical Indicators:
H+P, 11/27
#...PMH for HLD, anxiety presented with
#...lower back pain since the fall on Friday.
#...she is having trouble walking due to the pain. the pain is progressively getting worse.
PN, 11/29
#Intractable back pain from subacute vs. chronic T12 compression fracture
Please provide further specificity regarding the diagnosis of T12 compression fracture:
Multifactorial due to low level trauma and age related osteoporosis
Traumatic fracture only
Other (please specify)
Etiology
Traumatic
Pathologic due to osteoporosis
Pathologic due to other disease (please specify)
Due to a combination of trauma and a pathological process
but the trauma alone would not likely have been sufficient
to cause the fracture
Use of terms such as suspected, likely, concern for, or probable (associated with a specific diagnosis that is being evaluated, monitored, or treated as if it exists) are acceptable and can be coded in the inpatient setting, when documented at the
time of discharge.
Thank you,
Sandy Carcamo RN BSN CCDS
CDI Specialist
please contact via tiger text
Please use your independent medical judgment in providing your response.
[2024-11-30] MEDS: ROXICODONE 10 MG PO ×2 (10:58→17:28)
--- NOTE | 2024-11-30 11:11 | CM ---
CM reviewed pt with Shadia/[facility]
PMR marieal completed yesterday with acute recs
[facility] offering bed pending BM and good pain management
Call with sister/Marti who noted [facility] would be preference if pt is accepted
Update to Dr Carreon and Shadia- [facility] tomorrow to [facility]
Discharge Disposition- [facility]
[2024-11-30 12:05] VITALS: BP 113/69; PULSE 85; O2SAT 89
[2024-11-30 12:09] VITALS: BP 113/69; PULSE 85; O2SAT 89
--- NOTE | 2024-11-30 12:20 | W.PN.HOSP.TC ---
Today's Communication/Plan
-
adjust pain meds
bowel regimen
OOB/PT
Assessment / Plan
Assessment / Plan
General: Well Developed, Well Nourished and No Apparent Distress, abnormal facial features
HEENT: NormoCephalic, Moist mucous membranes and Atraumatic
Respiratory: Clear
Cardiac: S1/S2 and Regular Rhythm; No Murmur or Rub
GI: Soft, positive bowel sound, mild distention
Rectal: Deferred by Provider
Musculoskeletal: No Clubbing, No Cyanosis and No Edema, no step-offs
Skin: No Rash
Neuro: Nonfocal/grossly intact
Psych: Calm
#Intractable back pain from subacute vs. chronic T12 compression fracture due to trauma/fall
-Ct abdomen pelvis with No urinary tract calculus or dilatation bilaterally.Likely distal colonic diverticulosis.Marked T12 vertebral compression fracture with minor retropulsion of bony elements age-indeterminate but new in the interval since
remote prior CT and stable in comparison to recent lumbar spine radiographs November 24, 2024.
-PT/OT consulted-acute rehab
-no neurologic symptoms despite the retropulsion.
-Start patient on standing tramadol 50mg BID . Standing Tylenol 1000 mg 3 times daily oxycodone as needed. Avoid IV narcotics if possible.
-Tylenol ATC
-bowel regimen -will order dose of Enema. Unclear last bm.
-Recommend OP Dexa scan to assess for osteoporosis
-PMR evaluated
#HLD
-statin
#Paranoid scizophrenia ?
-olanzapine continued
#Suspected cognitive impairment
monitor mentation
fall precautions
# Tobacco abuse with suspected underlying COPD
# Alcohol usage
#Severe Vitamin D deficiency
-start po supplemetation
#DVT prophylaxis
Lovenox
#CODE status
-full code
PT/OT-acute rehab
Anticipated Discharge: Within 24 hours
Subjective/Interval History
-
Date of Service: November 30, 2024
states of back pain
no radiation
Objective Data
-
Vital Signs:
Vital Signs
Temp Pulse Resp BP Pulse Ox
98.0 F 83 16 110/70 95
11/30/24 11:18 11/30/24 11:18 11/30/24 11:18 11/30/24 07:32 11/30/24 11:18
I&O
11/29/24 11/30/24 12/01/24
06:59 06:59 06:59
Intake Total 1080 / 1080 1510 / 1510
Output Total 200 / 200
Balance 880 / 880 1510 / 1510
Data Reviewed
-
Total Time Spent with Patient (in minutes): 55
[2024-11-30] MEDS: FLEET MINERAL OIL ENEMA 133 ML RECTAL (14:50)
[2024-11-30 15:10] VITALS: BP 109/70
[2024-11-30] MEDS: TYLENOL 1000 MG PO ×2 (17:26→21:01)
[2024-11-30] MEDS: LOVENOX 40 MG SC (17:27)
[2024-11-30] MEDS: CRESTOR 10 MG PO (17:28)
[2024-11-30] MEDS: ULTRAM 50 MG PO (20:52)
[2024-11-30] MEDS: ZYPREXA 15 MG PO (21:01)
[2024-11-30] MEDS: DULCOLAX 10 MG PO (21:05)
[2024-11-30 23:41] VITALS: BP 129/81
[2024-12-01 07:38] VITALS: BP 123/63
[2024-12-01] MEDS: LIDOCAINE 4% PATCH 1 PATCH TOPICAL (09:44)
[2024-12-01] MEDS: TYLENOL 1000 MG PO ×3 (09:44→21:59)
[2024-12-01] MEDS: MIRALAX 17 GRAMS PO (09:44)
[2024-12-01] MEDS: ULTRAM 50 MG PO ×2 (09:45→21:59)
[2024-12-01] MEDS: SENOKOT 17.2 MG PO (09:45)
[2024-12-01] MEDS: COLACE 100 MG PO (09:45)
[2024-12-01] MEDS: CITROMA 300 ML PO (09:56)
--- NOTE | 2024-12-01 10:52 | CM ---
Chart reviewed
Pt accepted at [facility] - pending
Updates Jorge at [facility]
Plan - [facility] when medically ready
R - [phone]
F - [phone]
--- NOTE | 2024-12-01 11:37 | W.PN.HOSP.TC ---
Today's Communication/Plan
-
bowel regimen
abd xray
pain control
to acute rehab on dc
Assessment / Plan
Assessment / Plan
General: Well Developed, Well Nourished and No Apparent Distress, abnormal facial features
HEENT: NormoCephalic, Moist mucous membranes and Atraumatic
Respiratory: Clear
Cardiac: S1/S2 and Regular Rhythm; No Murmur or Rub
GI: Soft, positive bowel sound, non tender
Rectal: Deferred by Provider
Musculoskeletal: No Clubbing, No Cyanosis and No Edema, no step-offs
Skin: No Rash
Neuro: Nonfocal/grossly intact
Psych: Calm
#Intractable back pain from subacute vs. chronic T12 compression fracture due to trauma/fall
-Ct abdomen pelvis with No urinary tract calculus or dilatation bilaterally.Likely distal colonic diverticulosis.Marked T12 vertebral compression fracture with minor retropulsion of bony elements age-indeterminate but new in the interval since
remote prior CT and stable in comparison to recent lumbar spine radiographs November 24, 2024.
-PT/OT consulted-acute rehab
-no neurologic symptoms despite the retropulsion.
-Start patient on standing tramadol 50mg BID . Standing Tylenol 1000 mg 3 times daily oxycodone as needed. Avoid IV narcotics if possible.
-Tylenol ATC
-Recommend OP Dexa scan to assess for osteoporosis
-PMR evaluated
#Constipation
-aggressive bowel regimen -Continue with senna, Colace, MiraLAX. Dulcolax overnight
Will give patient Citroma and added a dose of enema
Check abdominal x-ray
Prior x-ray of lumbar 11/24/2024. severe fecal burden
#HLD
-statin
#Paranoid scizophrenia ?
-olanzapine continued
#Suspected cognitive impairment
monitor mentation
fall precautions
# Tobacco abuse with suspected underlying COPD
# Alcohol usage
#Severe Vitamin D deficiency
-start po supplemetation
#DVT prophylaxis
Lovenox
#CODE status
-full code
PT/OT-acute rehab
Anticipated Discharge: Today
Subjective/Interval History
-
Date of Service: December 01, 2024
remains with intermittent back pain
states had small bm yesterday but not documented
no abd pain
tolerating diet
Objective Data
-
Vital Signs:
Vital Signs
Temp Pulse Resp BP Pulse Ox
98.0 F 88 18 123/63 91
12/01/24 07:38 12/01/24 07:38 12/01/24 07:38 12/01/24 07:38 12/01/24 07:38
I&O
11/30/24 12/01/24 12/02/24
06:59 06:59 06:59
Intake Total 1510 / 1510 1240 / 1240
Balance 1510 / 1510 1240 / 1240
[2024-12-01 15:27] VITALS: BP 116/68
[2024-12-01] MEDS: CRESTOR 10 MG PO (17:33)
[2024-12-01] MEDS: LOVENOX 40 MG SC (17:34)
[2024-12-01] MEDS: COLACE PO (21:57)
[2024-12-01] MEDS: SENOKOT PO (21:57)
[2024-12-01] MEDS: MIRALAX PO (21:57)
[2024-12-01] MEDS: DULCOLAX PO (21:57)
[2024-12-01] MEDS: ZYPREXA 15 MG PO (21:59)
[2024-12-01 23:39] VITALS: BP 119/99
[2024-12-02 02:34] LABS: Glucose - Point of Care 117 mg/dl (70-99)
[2024-12-02 07:15] VITALS: BP 114/55
[2024-12-02] MEDS: TYLENOL 1000 MG PO (08:20)
[2024-12-02] MEDS: MIRALAX 17 GRAMS PO (08:21)
[2024-12-02] MEDS: ULTRAM 50 MG PO (08:21)
[2024-12-02] MEDS: COLACE 100 MG PO (08:21)
[2024-12-02] MEDS: SENOKOT 17.2 MG PO (08:21)
[2024-12-02] MEDS: LIDOCAINE 4% PATCH TOPICAL (08:22)
--- NOTE | 2024-12-02 09:49 | W.PN.HOSP.TC ---
Today's Communication/Plan
-
dc to [facility] now
Assessment / Plan
Assessment / Plan
#Intractable back pain from subacute vs. chronic T12 compression fracture due to trauma/fall
-Ct abdomen pelvis with No urinary tract calculus or dilatation bilaterally.Likely distal colonic diverticulosis.Marked T12 vertebral compression fracture with minor retropulsion of bony elements age-indeterminate but new in the interval since
remote prior CT and stable in comparison to recent lumbar spine radiographs November 24, 2024.
-PT/OT consulted-acute rehab
-no neurologic symptoms despite the retropulsion.
-Start patient on standing tramadol 50mg BID . Standing Tylenol 1000 mg 3 times daily oxycodone as needed. Avoid IV narcotics if possible.
-Tylenol ATC
-Recommend OP Dexa scan to assess for osteoporosis
-PMR evaluated
#Constipation
-aggressive bowel regimen -Continue with senna, Colace, MiraLAX. Dulcolax overnight
Will give patient Citroma and added a dose of enema
Check abdominal x-ray
Prior x-ray of lumbar 11/24/2024. severe fecal burden, will need to continue bowel prep
#HLD
-statin
#Paranoid scizophrenia ?
-olanzapine continued
#Suspected cognitive impairment
monitor mentation
fall precautions
# Tobacco abuse with suspected underlying COPD
# Alcohol usage
#Severe Vitamin D deficiency
-start po supplementation
#DVT prophylaxis
Lovenox
#CODE status
-full code
PT/OT-DC to acute rehab now
Anticipated Discharge: Today
Subjective/Interval History
-
Date of Service: December 02, 2024
Apprehensive, just notified that pt can go to [facility]
Objective Data
-
Vital Signs:
Vital Signs
Temp Pulse Resp BP Pulse Ox
97.5 F 85 16 114/55 92
12/02/24 07:15 12/02/24 07:15 12/02/24 07:15 12/02/24 07:15 12/02/24 08:26
I&O
12/01/24 12/02/24 12/03/24
06:59 06:59 06:59
Intake Total 1240 / 1240 120 / 120 480 / 480
Balance 1240 / 1240 120 / 120 480 / 480
Review of Systems
-
History Source: Patient
Constitutional: Denies Fever
EENT: Reports No Symptoms Reported
Respiratory: Reports No Symptoms
Cardiac: Reports No Symptoms
Abdomen/GI: Denies Constipated (as per nursing, has been passing stools)
Musculoskeletal: Reports Joint Pain (T12 compression fx pain)
Physical Exam
-
General: Well Developed, Well Nourished and No Apparent Distress
HEENT: Normocephalic, Atraumatic and Moist Mucous Membranes
Respiratory: Clear to Auscultation; Negative Wheezes, Rales or Rhonchi
Cardiac: Regular Rhythm and S1/S2
GI: Soft, Nontender and Nondistended
Musculoskeletal: No Clubbing, No Cyanosis and No Edema
Skin: Warm and Dry
Neuro: Awake and Alert
--- NOTE | 2024-12-02 10:16 | CM ---
Pt medically ready for discharge
Liapriscilla Patel aware
Spoke with sister Marti aware. Pt to be transferred to [facility] - family updated
Discussed IMM with sister Marti
Plan - transfer to [facility]
R - [phone]
- [phone]
--- NOTE | 2024-12-02 12:55 | PTCARENOTE ---
[facility] to [facility]. RN was unavailable for report. Left 2 [facility] call back number with [facility] staff to call back when available
--- NOTE | 2024-12-02 14:00 | W.DS.TRANS ---
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
-
Discharge Instructions:
Discharge Diagnosis/Procedures Intractable back pain from subacute vs. chronic
T12 compression fracture due to trauma/fall
constipation
Vitamin D deficiency
Diet Regular
Activity With assistance,As tolerated
Driving Restrictions Not until seen by your Dr
Instructions:
Stand-Alone Forms:
Changes to Home Medications: No
Discharge Medications:
DC Medications w/original date entered in [employer]
olanzapine 15 mg tablet 15 mg PO HS 08/27/23
rosuvastatin 10 mg tablet (Crestor) 10 mg PO QPM 11/27/24
acetaminophen 500 mg tablet (Tylenol Extra Strength) 1,000 mg (2 x 500 mg) PO TID #20 tabs 12/01/24
docusate sodium 100 mg capsule 100 mg PO BID #30 caps 12/01/24
ergocalciferol (vitamin D2) 1,250 mcg (50,000 unit) capsule 50,000 unit PO Q7D #6 caps 12/01/24
oxycodone 5 mg tablet 10 mg (2 x 5 mg) PO Q4HPRN PRN mod pain 3 days #10 tabs 12/01/24
polyethylene glycol 3350 17 gram oral powder packet 17 g PO BID #30 ea 12/01/24
sennosides 8.6 mg tablet (Angelique-fern) 17.2 mg (2 x 8.6 mg) PO BID #14 tabs 12/01/24
tramadol 50 mg tablet 50 mg PO BID 7 days #14 tabs 12/01/24
Home Medication Changes
Pending Results: No
[2024-12-02] MEDS: ROXICODONE 10 MG PO (14:44)
[2024-12-02 14:58] VITALS: BP 139/64
== END 2024-12-02 15:22 | DRG 552 ==
LOC: 2 SOUTH 08:04
PROVIDERS: Hospitalist; ADMITTING PHYSICIAN Internal Medicine; ATTENDING PHYSICIAN Internal Medicine; CONSULT PHYSICIAN Physical Medicine & Rehabilitation; EMERGENCY PHYSICIAN Emergency Medicine; FAMILY PHYSICIAN Family Medicine
DX: S22.080A Wedge compression fracture of T11-T12 vertebra, initial encounter for closed fracture (principal); F03.918 Unspecified dementia, unspecified severity, with other behavioral disturbance; F03.94 Unspecified dementia, unspecified severity, with anxiety; F20.0 Paranoid schizophrenia; K59.09 Other constipation; F17.210 Nicotine dependence, cigarettes, uncomplicated; F41.1 Generalized anxiety disorder; E78.00 Pure hypercholesterolemia, unspecified; W19.XXXA Unspecified fall, initial encounter; K57.30 Diverticulosis of large intestine without perforation or abscess without bleeding; E55.9 Vitamin D deficiency, unspecified; J44.9 Chronic obstructive pulmonary disease, unspecified; G47.00 Insomnia, unspecified; Z90.710 Acquired absence of both cervix and uterus; Z96.619 Presence of unspecified artificial shoulder joint; Z98.41 Cataract extraction status, right eye; Z98.42 Cataract extraction status, left eye; Z85.41 Personal history of malignant neoplasm of cervix uteri
CPT/HCPCS: 74019; 74176; 80053; 82306; 82962; 83690; 85025; 96374; 96375; 97116; 97163; 97167; 97535; 99284; 99406

== ENCOUNTER 2024-12-23 12:15 | Emergency (ER) | payer MEDICARE, SELFPAY ==
[2024-12-23 12:16] VITALS: BP 114/88
--- NOTE | 2024-12-23 13:48 | ED.GENMED ---
History of Present Illness
General
Chief Complaint: Back Pain
Time Seen by Provider: 12/23/24 13:11
History of Present Illness
History of Present Illness:
74-year-old female with history of dementia and hyperlipidemia presents the emergency department for evaluation of worsening low back pain. Patient was seen in this hospital earlier this month due to a fall resulting in a T12 compression fracture,
due to severe pain was admitted to [facility] and was discharged approximately 2 weeks ago. Currently on tramadol and gabapentin. Saw her PCP yesterday and was uptitrated on her pain medications. She reports a 'sharp shooting pain' that runs from
the mid back down to the low back. Denies any lower extremity radiculopathy or paresthesias. She does report intermittent urinary incontinence but this seems to be predominantly at nighttime and not during the day. Typically uses a walker for
ambulatory assistance.
Past History
Past History
ED Past Medical History: Hypercholesterolemia and Other (dementia)
ED Past Surgical History: Other (Bilateral cataract surgery)
Social History
Tobacco: Smoker
Alcohol: Daily
Drug: None
Personal: Single
Living: with family
Employment: Retired
Family History
Family History: Other
Review of Systems
Review of Systems
Allergies reviewed?: Yes
All Other Systems: ROS reviewed and negative except as documented in HPI and ROS
Phy Exam
Physical Exam
Physical Exam:
GEN: Well appearing, NAD, WDWN
HEENT: Oral mucosa moist, no scleral icterus
Cardiac: Regular rate
Lung: No respiratory distress, no tachypnea
MSK: No gross deformity or injuries
Skin: Good color, no pallor or jaundice, no rashes
Neuro: Alert and oriented to baseline, moves all extremities freely, bilateral lower extremity strength is 5 out of 5 in all ackerman and symmetric, no sensory level deficits, patellar reflexes 2+ bilaterally
Psych: Calm, cooperative
Course
Orders/Labs/Results
Orders:
Orders
12/23/24 13:25
CR Lumbar Spine Comp Min 4 Vw* Urgent
Comment:
Reason For Exam: low back pain
12/23/24 13:33
Complete Blood Count/No Diff Urgent
Comprehensive Metabolic Panel Urgent
12/23/24 14:38
Pt Eval And Treat Urgent
Activity Level: Ambulate
12/23/24 15:31
Gabapentin [Neurontin] 200 mg PO NOW STA
Abnormal Lab Results
12/23/24
13:33
MPV 11.0 H fL
(7.4-10.4)
BUN 20 H mg/dl
(7-17)
Glucose 116 H mg/dl
(70-99)
12/23/24 13:33
12/23/24 13:33
Vital Signs
Initial and Last Documented VS:
Initial Vital Signs
Temp Pulse Resp BP Pulse Ox
97.5 F 58 16 114/88 98
12/23/24 12:16 12/23/24 12:16 12/23/24 12:16 12/23/24 12:16 12/23/24 12:16
Last Documented Vital Signs
Temp Pulse Resp BP Pulse Ox
97.5 F 67 15 134/81 97
12/23/24 12:16 12/23/24 14:00 12/23/24 14:00 12/23/24 14:00 12/23/24 14:00
MDM/Problems Addressed
MDM/Problems Addressed:
Patient was evaluated by physical therapy and is able to manage herself reasonably well despite her complaints of pain. She does not show any external signs of pain other than simply stating that this hurts this hurts'. There is no indication for
rehab placement at this time. She would likely benefit from outpatient MRI and IR consultation for possible vertebroplasty given the significant compression and bony retropulsion. She has no emergent neurologic findings at this time that would
warrant inpatient admission thus this can be completed as an outpatient
*Critical Care Note
Total Time (30-74mins, 75-104mins- exclusive of procedures): Not Applicable
ED Attending Note
-
Portions of this chart may have been created with voice recognition software.� Occasional wrong word or��sound alike� substitutions may have occurred due to the inherent limitations of voice recognition software.
Discharge Plan
Departure
Patient Disposition: Home (Routine Discharge)
Date of Disposition: 12/23/24
Time of Disposition: 15:31
Patient with high blood pressure during this ER visit?: No
Discharge Problem:
Chronic low back pain
Instructions: Low Back Pain (DC)
Prescriptions:
New
gabapentin 100 mg capsule
200 mg PO TID Qty: 60 0RF
Discontinued
gabapentin 100 mg Capsule
100 mg PO TID 30 Days Qty: 90 0RF
No Action
lidocaine 5 % ointment
1 applic topical TID PRN (Reason: Pain) 30 Days Qty: 50 0RF
melatonin 5 mg Tablet
5 mg PO HS PRN (Reason: Insomnia) 30 Days Qty: 30 0RF
acetaminophen 325 mg Tablet
650 mg PO Q6HPRN PRN (Reason: mild pain) 30 Days Qty: 100 0RF
tramadol 50 mg Tablet
50 mg PO TID 30 Days Qty: 90 0RF
cyanocobalamin (vitamin B-12) [Vitamin B-12] 1,000 mcg Tablet
1,000 mcg PO DAILY 30 Days Qty: 30 0RF
sennosides [Angelique-fern] 8.6 mg Tablet
17.2 mg PO BID Qty: 14 0RF
polyethylene glycol 3350 17 gram Powder In Packet
17 g PO BID PRN (Reason: Constipation) Qty: 30 0RF
olanzapine 15 mg Tablet
15 mg PO HS Qty: 0 0RF
ergocalciferol (vitamin D2) 1,250 mcg (50,000 unit) Capsule
50,000 unit PO Q7D Qty: 6 0RF
rosuvastatin [Crestor] 10 mg Tablet
10 mg PO QPM Qty: 0 0RF
Referrals:
Melida Cortez DO [Family Provider] -
Interventions
Interventions:
*Risk Screen - Suicide Last Done: 12/23/24 12:16
*General Assessment Last Done: 12/23/24 13:35
*Neglect/Abuse Screening Last Done: 12/23/24 12:16
*ED- Fall Risk Assessment Last Done: 12/23/24 12:58
*ED COVID-19 Vaccine History Last Done: 12/23/24 12:57
*Nursing Disposition Last Done: 12/23/24 15:50
ED-Musculoskeletal Assessment Last Done: 12/23/24 13:00
Discharge Date and Time
Discharge Date/Time: 12/23/24 15:56
Print Language: WOLOF
[2024-12-23 13:51] LABS: Hematocrit 41.5 % (37.0-47.0); Hemoglobin 13.8 g/dL (12.0-16.0); Mean Corp Hgb Conc. 33.3 g/dL (33.0-37.0); Mean Corpuscular Hgb 30.5 pg (27.0-31.0); Mean Corpuscular Volume 91.6 fL (81.0-99.0); Platelet Count 229 10^3/uL (130-400); Red Blood Cell Count 4.53 10^6/uL (4.20-5.40); Red Cell Dist. Width 12.6 % (11.5-14.5); White Blood Cell Count 7.9 10^3/uL (4.8-10.8)
[2024-12-23 14:00] VITALS: BP 134/81
[2024-12-23 14:00] LABS: ALT (SGPT) 17 U/L (0-35); AST (SGOT) 17 U/L (14-36); Albumin 3.9 g/dl (3.5-5.0); Alkaline Phosphatase 115 U/L (38-126); Blood Urea Nitrogen 20 mg/dl (7-17); Calcium 9.3 mg/dl (8.4-10.2); Carbon Dioxide 27 mmol/L (22-30); Chloride 107 mmol/L (98-107); Estimated Creatinine Clearance 72 ml/min; Glucose 116 mg/dl (70-99); Potassium 4.6 mmol/L (3.5-5.1); Sodium 141 mmol/L (135-145); Total Bilirubin 0.6 mg/dl (0.2-1.3); Total Protein 6.7 g/dl (6.3-8.2); eGFR > 60.00
[2024-12-23 15:24] VITALS: BP 121/78; PULSE 77; O2SAT 93
[2024-12-23] MEDS: NEURONTIN 200 MG PO (15:42)
== END 2024-12-23 15:56 | disposition home or self-care (01) ==
LOC: EMR 12:15
PROVIDERS: Physician Assistant; EMERGENCY PHYSICIAN Student in an Organized Health Care Education/Training Program; FAMILY PHYSICIAN Family Medicine
DX: G89.29 Other chronic pain (principal); M54.50 Low back pain, unspecified; F03.90 Unspecified dementia, unspecified severity, without behavioral disturbance, psychotic disturbance, mood disturbance, and anxiety; E78.00 Pure hypercholesterolemia, unspecified; F17.200 Nicotine dependence, unspecified, uncomplicated; Z79.899 Other long term (current) drug therapy
CPT/HCPCS: 99283; 72110; 80053; 85027